=== PATIENT | male | born 2000 | race Caucasian/White ===

== ENCOUNTER 2019-12-11 18:24 | Emergency (ER) | payer SELFPAY ==
[~2019-12-11] VITALS: Ht 165.1 cm; Wt 66.1 kg
[2019-12-12] MEDS ORDERED: KETOROLAC 30MG/ML VIAL IV STA (01:29)
[2019-12-12] MEDS ORDERED: ONDANSETRON HCL 4MG/2ML INJ IV STA (01:29)
[2019-12-12] MEDS ORDERED: SODIUM CHLORIDE 0.9% 1,000 ML IV ONE (01:29)
[2019-12-12 02:01] LABS: CLARITY URINE CLEAR (CLEAR); COLOR URINE YELLOW (YELLOW); KETONES URINE TRACE (NEGATIVE); LEUKOCYTE ESTERASE URINE NEGATIVE (NEGATIVE); NITRITE URINE NEGATIVE (NEGATIVE); OCCULT BLOOD URINE 3+ (NEGATIVE); PH URINE 6.5 (4.5-8.0); PROTEIN URINE TRACE (NEGATIVE); SPECIFIC GRAVITY URINE 1.029 (1.005-1.030); UROBILINOGEN URINE 0.2 E.U./dL (0.2-1.0)
[2019-12-12 02:09] LABS: BASOPHILS % 0.2 % (0.0-2.0); HEMATOCRIT. 45.8 % (42.0-52.0); HEMOGLOBIN. 15.8 g/dL (14.0-18.0); LYMPHOCYTES % 7.9 % (20.0-50.0); MEAN CORPUSCULAR HEMOGLOBIN 31.8 pg (28.0-32.0); MEAN PLATELET VOLUME 6.7 fl (7.4-10.4); MONOCYTES % 2.5 % (2.0-8.0); NEUTROPHILS % 89.4 % (40.0-76.0); PLATELET 382 x1000/uL (130-400); RED BLOOD CELL COUNT 4.98 mill/uL (4.7-6.1); RED CELL DISTRIBUTION WIDTH 12.8 % (11.6-14.6)
[2019-12-12 02:13] LABS: CHLORIDE 103 mEq/L (98-107)
[2019-12-12 02:25] LABS: INR 1.1; PROTHROMBIN TIME 11.1 sec (9.6-11.0)
[2019-12-12] MEDS ORDERED: IOHEXOL-300 100 ML BOTTLE ONE (02:57)
[2019-12-12 04:35] VITALS: BP 130/80
== END 2019-12-12 04:25 | disposition home or self-care (01) ==
LOC: ER 18:24
DX: R31.9 Hematuria, unspecified (principal); J06.9 Acute upper respiratory infection, unspecified
CPT/HCPCS: 36415; 71045; 74177; 80053; 81003; 83690; 83880; 85025; 85610; 87804; 93005; 96361; 96374; 96375; 99284; J1885; J2405; J7030; Q9967